=== PATIENT | male | born 1955 | race Caucasian/White ===

== ENCOUNTER 2018-12-22 21:29 | Emergency (ER) | payer BC ==
[2018-12-23] MEDS: HYDROCODONE/APAP (5/325) TAB PO (00:23)
== END 2018-12-23 01:43 | disposition home or self-care (01) ==
LOC: FTE 21:29
DX: S20.229A Contusion of unspecified back wall of thorax, initial encounter (principal); I10 Essential (primary) hypertension; S50.01XA Contusion of right elbow, initial encounter; W01.0XXA Fall on same level from slipping, tripping and stumbling without subsequent striking against object, initial encounter; Y92.9 Unspecified place or not applicable
CPT/HCPCS: 72072; 72100; 99283-25